=== PATIENT | female | born 1975 | race Two or more races ===

== ENCOUNTER 2017-03-21 18:11 | Emergency (ER) | payer MEDICAID ==
[~2017-03-21] VITALS: Ht 154.9 cm; Wt 85.3 kg
[~2017-03-21 18:11] MED LIST: AMITRIPTYLINE H10 MG PO; APAP/HYDROCODON1 T13 PO; ATENOLOL50 MG PO; COL100 PO; FLUOXETINE20 M2 PO; HYDROCHLOROTHIA25 MG PO
[2017-03-21 18:18] VITALS: Ht 154.9 cm; Wt 85.3 kg
[2017-03-22 03:58] LABS: BASOPHIL % 0.2 % (0-2); PLATELET COUNT 381 x10^3mcL (130-400)
[2017-03-22 04:07] LABS: RED CELL DISTRIBUTION WIDTH 15.7 % (11.5-14.5)
[2017-03-22 04:12] LABS: CALCIUM 7.9 mg/dL (8.5-10.1); CARBON DIOXIDE 24.8 mmol/L (21-32); CHLORIDE SERUM 105 mmol/L (98-107); CREATININE SERUM 0.6 mg/dL (0.6-1.0); GFR1 > 60 mL/min; GLUCOSE SERUM 96 mg/dL (74-106); POTASSIUM SERUM 3.2 mmol/L (3.5-5.1); SODIUM SERUM 141 mmol/L (136-145)
[2017-03-22 04:16] LABS: ALKALINE PHOSPHATASE 79 U/L (46-116); ALT/SGPT 15 U/L (14-59); AMYLASE 40 U/L (25-115); AST/SGOT 13 U/L (15-37); BILIRUBIN TOTAL 0.25 mg/dL (0.20-1.00); LIPASE 159 IU/L (73-393); TOTAL PROTEIN, SERUM 7.5 g/dL (6.4-8.2)
[2017-03-22 04:20] LABS: ALBUMIN 3.3 g/dL (3.4-5.0)
[2017-03-22 07:20] VITALS: BP 109/72
== END 2017-03-22 07:20 | disposition home or self-care (01) ==
LOC: ED 18:11
PROVIDERS: Emergency Medicine
DX: R10.9 Unspecified abdominal pain (principal); I10 Essential (primary) hypertension; E11.9 Type 2 diabetes mellitus without complications; G43.909 Migraine, unspecified, not intractable, without status migrainosus; Z90.49 Acquired absence of other specified parts of digestive tract
CPT/HCPCS: 83880; J1885; J2270; J2405; J7030

== ENCOUNTER 2017-12-30 03:26 | Emergency (ER) | payer MEDICAID ==
[~2017-12-30] VITALS: Ht 154.9 cm; Wt 92.1 kg
[2017-12-30 03:31] VITALS: Ht 154.9 cm; Wt 92.1 kg
[2017-12-30 06:24] VITALS: BP 125/70
== END 2017-12-30 06:24 | disposition home or self-care (01) ==
LOC: ED 03:26
DX: R10.13 Epigastric pain (principal); R11.0 Nausea; I10 Essential (primary) hypertension; E11.9 Type 2 diabetes mellitus without complications; Z90.49 Acquired absence of other specified parts of digestive tract; Z90.89 Acquired absence of other organs; E66.9 Obesity, unspecified
CPT/HCPCS: C9113; J3490; Q0162